=== PATIENT | female | born 1955 | race Caucasian/White ===

== ENCOUNTER → 2020-04-14 | Outpatient (CLI) | payer MEDICARE, OTHER ==
[~2020-04-14] MED LIST: ASPIRIN325 PO; CIPROFLOXACIN500 M3 PO; DILTIAZEM ER180 M2 PO; DIOVAN160 MG; FISHOIL PF; FLAGYL500 MG PO; FLEXERIL PO; LIPITOR10 MG; NEURONTIN 300300 M1 PO; PREVACID PO; TYLENOL WITH CO1 TA1 PO; VALSARTAN40 MG PO; VITAMIN D400 UNI1 PO; WELLBUTRIN XL300 M1; ZOFRAN4 MG PO
== END ==
LOC: M.LAB 16:05
PROVIDERS: ATTEND Orthopaedic Surgery
DX: Z20.828 Contact with and (suspected) exposure to other viral communicable diseases (principal)

== ENCOUNTER → 2020-04-20 | Outpatient (CLI) | payer MEDICARE, OTHER | END | disposition home or self-care (01) | LOC: M.SUR 04-18 06:59 → M.LAB 08:00 → M.SUR 04-25 06:13 → EDSTATUS 04-25 11:44 → M.SUR 04-25 14:04 | PROVIDERS: ATTEND Orthopaedic Surgery | DX: M75.100 Unspecified rotator cuff tear or rupture of unspecified shoulder, not specified as traumatic (principal); Z53.8 Procedure and treatment not carried out for other reasons; Z11.59 Encounter for screening for other viral diseases; Z79.899 Other long term (current) drug therapy ==